=== PATIENT | female | born 2000 | race Caucasian/White ===

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

== ENCOUNTER 2020-05-16 12:14 | Emergency (ER) | payer BC, OTHER ==
[2020-05-16] MEDS ORDERED: Ondansetron PF 4 MG/2 ML Vial ONE (13:04)
[2020-05-16 13:17] LABS: #Basophils 0.1 thou/uL (0.0-0.2); #Eosinphils 0.2 thou/uL (0.0-0.7); #Lymphocytes 1.9 thou/uL (1.20-3.40); #Monocytes 0.5 thou/uL (0.11-0.59); #Neutrophils 4.4 thou/uL (1.40-6.50); %Basophils 1.1 % (0.0-1.0); %Eosinophils 2.6 % (0.0-10.0); %Lymphocytes 27.5 % (28.0-48.0); %Monocytes 6.7 % (0.0-4.0); %Neutrophils 62.1 % (31.0-61.0); Hemoglobin 14.4 g/dL (12.0-16.0); Mean Corpuscular HGB CONC 33.9 g/dL (32.0-36.0); Mean Corpuscular Hemoglobin 31.6 pg (25.0-35.0); Mean Corpuscular Volume 93.4 fL (78.0-98.0); Mean Platelet Volume 8.1 fL (7.4-10.4); Platelet Count 253 thou/uL (130-400); RBC Distribution Width 11.7 % (11.5-14.5); Red Blood Cell (RBC) Count 4.54 mill/uL (4.00-5.20)
[2020-05-16 13:23] LABS: BHCG - Serum Negative (NEGATIVE); Pregs Control Background? CLEAR/WHITE (CLR/WHITE); Pregs Control Bar Appear? YES (CONTROL BAR)
[2020-05-16 13:27] LABS: Bilirubin Negative (Negative); Blood, Urine Negative (Negative); Clarity Turbid (Clear); Glucose, Urine (Dipstick) Normal (Negative); Ketone, Urine Negative (Negative); Leukocyte 500 Leu/uL (Negative); Nitrite Negative (Negative); Protein, Urine (Dipstick) 20 mg/dL (Neg-Trace); Specific Gravity, Urine 1.026 (1.002-1.036); Urobilinogen Normal mg/dL (Less than 2); pH, Urine 7.5 (5.0-9.0)
[2020-05-16 13:33] LABS: Bacteria/HPF 1+ HPF (None Seen)
[2020-05-16 13:38] LABS: ALT (SGPT) 12 U/L (8-55); AST (SGOT) 13 U/L (5-30); Albumin 4.3 g/dL (3.5-5.0); Alkaline Phosphatase 50 U/L (40-100); Anion Gap 11 mmol/L (10-20); BUN (Urea Nitrogen) 17 mg/dL (8.4-21.0); Bilirubin, Total 0.4 mg/dL (0.2-1.2); Calc. Creatinine Clearance 0 mL/min (70-130); Calcium 8.8 mg/dL (7.8-10.44); Carbon Dioxide 26 mmol/L (22-29); Chloride 108 mmol/L (98-107); Globulin 2.9 g/dL (2.4-3.5); Glucose 96 mg/dL (70-105); Potassium 4.2 mmol/L (3.5-5.1); Protein, Total 7.2 g/dL (6.0-8.3); Sodium 141 mmol/L (136-145)
[2020-05-16] MEDS ORDERED: Ketorolac Tromethamine 30 MG/ML VIAL ONE (13:38)
--- NOTE | 2020-05-16 14:06 | ULT ---
ULTRASOUND PELVIC ULTRASOUND TRANSVAGINAL DOPPLER DUPLEX: DATE: 05/16/2020 HISTORY: 19-year-old female with pelvic pain TECHNIQUE: Transabdominal transducer and endovaginal transducer used to visualize intrapelvic contents with ponce scale, color-flow, and spectral analysis. FINDINGS: Uterus:7 x 2.5 x 4 cm.. Endometrial stripe: Obscured by IUD. Right ovary:2 x 3.1 x 1.5 cm.. Left ovary:2 x 3.4 x 2.8 cm.. Uterine leiomyoma (fibroid):None Blood flow in ovaries:Bilaterally demonstrated There are multiple prominent follicles in the right ovary. The largest of these is a 0.9 x 0.6 x 0.7 cm cyst. In the left ovary, there are several larger complex hemorrhagic cysts. The largest is approximately 1 .8 x 1 x 1.5 cm, with acorn appearance. Free fluid in the cul-de-sac:None IMPRESSION: 1) a few left complex, hemorrhagic small ovarian cysts. 2) intrauterine device
== END 2020-05-16 15:00 | disposition home or self-care (01) ==
LOC: ERS 12:14
DX: R11.2 Nausea with vomiting, unspecified (principal); N83.202 Unspecified ovarian cyst, left side; J45.909 Unspecified asthma, uncomplicated
CPT/HCPCS: 76856; 80053; 81003; 81015; 84703; 85025; 96361; 96374; 96375; J1885; J2405